=== PATIENT | male | born 1990 | race African-American/Black ===

== ENCOUNTER 2016-03-17 10:24 | Emergency (ER) | payer OTHER ==
[2016-03-17] MEDS ORDERED: HYDROmorphONE/DILAUDID 1 MG/ML SYR ONE (10:56)
[2016-03-17] MEDS ORDERED: ONDANSETRON 4 MG/2 ML VIAL ONE (10:56)
[2016-03-17] MEDS ORDERED: ONDANSETRON 4 MG/2 ML VIAL IVP ONE (11:05)
[2016-03-17] MEDS ORDERED: NS 1,000 ML IV ONE (11:05)
[2016-03-17] MEDS ORDERED: HYDROmorphONE/DILAUDID 1 MG/ML SYR IVP ONE (11:05)
[2016-03-17 11:14] LABS: % IMMATURE GRANULYOCYTES 0.3 % (0.0-1.1); ABSOLUTE IMMATURE GRANULOCYTES 0.03 10^3/uL (0.00-0.10); ADD DIFF? NO; ADD MORPH? NO; ADD SCAN? NO; ATYPICAL LYMPHOCYTE FLAG 10 (0-99); FRAGMENT RBC FLAG 0 (0-99); HEMATOCRIT 43.8 % (40.0-51.0); HEMOGLOBIN 14.9 g/dL (13.7-17.5); LEFT SHIFT FLG 0 (0-99); LIPEMIA HEMOLYSIS FLAG 90 (0-99); MEAN CELL HEMOGLOBIN 26.6 pg (27.9-34.1); MEAN CELL VOLUME 78.2 fL (81.5-99.8); MEAN PLATELET VOLUME 8.7 fL (8.7-11.7); PLATELET CLUMPS FLAG 10 (0-99); PLATELET COUNT 237 10^3/uL (150-400); RED CELL DISTRIBUTION WIDTH 12.3 % (11.5-15.2)
[2016-03-17 11:17] LABS: COLOR YELLOW; LEUKOCYTE ESTERASE,URINE NEGATIVE (NEGATIVE); NITRITE,URINE NEGATIVE (NEGATIVE)
[2016-03-17 11:21] LABS: RBC,URINE 50-182 /hpf (0-3)
[2016-03-17 11:33] LABS: ANION GAP 13 mEq/L (8-16); CALCIUM 9.6 mg/dL (8.5-10.4); CARBON DIOXIDE 21 mEq/l (22-31); CHLORIDE 103 mEq/L (97-110); CREATININE 1.2 mg/dL (0.7-1.3); GLOMERULAR FILTRATION RATE > 60; GLUCOSE 142 mg/dL (70-100); SODIUM 137 mEq/L (134-144)
[2016-03-17] MEDS ORDERED: KETOROLAC 30 MG/1 ML SDV IVP ONE (11:40)
[2016-03-17] MEDS ORDERED: TAMSULOSIN HCL 0.4 MG CAP PO ONE (11:40)
--- NOTE | 2016-03-17 11:53 | EDPHY ---
H & P Stated Complaint: L FLANK PAIN SINCE THIS AM Time Seen by Provider: 03/17/16 11:09 HPI/ROS: CHIEF COMPLAINT: left flank pain HISTORY OF PRESENT ILLNESS: 26-year-old male presents emergency department complaining of left lower quadrant abdominal pain that started at 6:30 a.m. this morning. Patient woke up feeling fine, an hour later developed a mild ache in his left lower quadrant. As the day has gone on a radiated to his left flank, became significantly worse in now he feels it in his left lower quadrant and left flank. Patient reports nausea, no vomiting, chills. He denies diarrhea. No fevers, no recent illness, no difficulty urinating, no hematuria, dysuria, he denies scrotal swelling or pain. Patient reports history of kidney stone on the right in 2012 states this feels a little different as the pain is not as sharp as last time. Patient denies abdominal surgeries. REVIEW OF SYSTEMS: A comprehensive 10 point review of systems is otherwise negative aside from elements mentioned in the history of present illness. Source: Patient Exam Limitations: No limitations - Personal History Current Tetanus/Diphtheria Vaccine: Yes Current Tetanus Diphtheria and Acellular Pertussis (TDAP): Yes - Medical/Surgical History Hx Asthma: No Hx Chronic Respiratory Disease: No Hx Diabetes: No Hx Cardiac Disease: No Hx Renal Disease: No Hx Cirrhosis: No Hx Alcoholism: No Hx HIV/AIDS: No Hx Splenectomy or Spleen Trauma: No Other PMH: PMH- KIDNEY STONES. PSH- L WRIST, R KNEE - Family History Significant Family History: No pertinent family hx - Social History Smoking Status: Never smoked - Physical Exam Exam: Physical Exam Gen: Alert and Oriented, NAD HEENT: PERRL, moist mucous membranes NECK: no meningismus CV: regular rate and regular rhythm PULM: CTAB, no wheezes ABDOMEN: soft, mild left lower quadrant tenderness to palpation, no rebound tenderness, no peritoneal signs, no guarding. BS present BACK: Left CVA tenderness NEURO: Neurologically grossly intact EXTREMITIES: normal appearing SKIN: no rash or break in skin on exposed skin PSYCH: answers questions appropriately. Constitutional: Initial Vital Signs Temperature (C) 36.3 C 03/17/16 10:27 Heart Rate 77 03/17/16 10:27 Respiratory Rate 22 H 03/17/16 10:27 Blood Pressure 170/72 H 03/17/16 10:27 O2 Sat (%) 100 03/17/16 10:27 O2 Delivery Mode Room Air Allergies/Adverse Reactions: Sulfa (Sulfonamide Antibiotics) Allergy (Verified 03/17/16 10:27) Home Medications: Medication Instructions Recorded Ondansetron Odt [Zofran Odt] 4 mg PO Q6-8PRN PRN #8 tab 03/17/16 Tamsulosin HCl 0.4 mg PO DAILY #7 cap 03/17/16 oxyCODONE/APAP 5/325 [Percocet 1 - 2 tab PO Q6H PRN #12 tab 03/17/16 5/325] Medical Decision Making ED Course/Re-evaluation: IV established, CBC, chemistry panel and urinalysis obtained. Patient was given 1 mg of IV Dilaudid and 4 mg of Zofran for pain and nausea. Urinalysis shows 50-182 red blood cells, 3-5 white blood cells. CBC is unremarkable, chemistry panel shows normal renal function. Patient is given 30 mg of Toradol IV and 0.4 mg of tamsulosin. This is likely a ureteral calculi. Will treat the patient for his pain and he will be discharged home with pain medication. Patient is urinating without difficulty, is afebrile, no white count few white blood cells in urine, this is unlikely a obstructing stone and unlikely an infected stone. Patient is given strict return precautions for fevers, vomiting, pain that is not controlled. He is given a urologist to follow up with for symptoms that are not improving. Differential Diagnosis: The differential diagnosis for the patient's flank pain included but was not limited to musculoskeletal causes, kidney stone, pyelonephritis, shingles, diverticulitis, appendicitis, and aortic aneurysm. - Data Points Laboratory Results: Laboratory Results 03/17/16 10:50 03/17/16 10:50 03/17/16 10:50 WBC 9.74 H 10^3/uL (3.80-9.50) RBC 5.60 10^6/uL (4.40-6.38) Hgb 14.9 g/dL (13.7-17.5) Hct 43.8 % (40.0-51.0) MCV 78.2 L fL (81.5-99.8) MCH 26.6 L pg (27.9-34.1) MCHC 34.0 g/dL (32.4-36.7) RDW 12.3 % (11.5-15.2) Plt Count 237 10^3/uL (150-400) MPV 8.7 fL (8.7-11.7) Neut % (Auto) 82.6 H % (39.3-74.2) Lymph % (Auto) 12.8 L % (15.0-45.0) [place] % (Auto) 3.8 L % (4.5-13.0) Eos % (Auto) 0.1 L % (0.6-7.6) Baso % (Auto) 0.4 % (0.3-1.7) Nucleat RBC Rel Count 0.0 % (0.0-0.2) Absolute Neuts (auto) 8.04 H 10^3/uL (1.70-6.50) Absolute Lymphs (auto) 1.25 10^3/uL (1.00-3.00) Absolute Monos (auto) 0.37 10^3/uL (0.30-0.80) Absolute Eos (auto) 0.01 L 10^3/uL (0.03-0.40) Absolute Basos (auto) 0.04 10^3/uL (0.02-0.10) Absolute Nucleated RBC 0.00 10^3/uL (0-0.01) Immature Gran % 0.3 % (0.0-1.1) Immature Gran # 0.03 10^3/uL (0.00-0.10) Sodium 137 mEq/L (134-144) Potassium 4.0 mEq/L (3.5-5.2) Chloride 103 mEq/L (97-110) Carbon Dioxide 21 L mEq/l (22-31) Anion Gap 13 mEq/L (8-16) BUN 16 mg/dL (7-23) Creatinine 1.2 mg/dL (0.7-1.3) Estimated GFR > 60 Glucose 142 H mg/dL (70-100) Calcium 9.6 mg/dL (8.5-10.4) Urine Color YELLOW Urine Appearance CLEAR Urine pH 6.0 (5.0-7.5) Ur Specific [place] 1.019 (1.002-1.030) Urine Protein NEGATIVE (NEGATIVE) Urine Ketones TRACE H (NEGATIVE) Urine Blood 3+ H (NEGATIVE) Urine Nitrate NEGATIVE (NEGATIVE) Urine Bilirubin NEGATIVE (NEGATIVE) Urine Urobilinogen NEGATIVE EU (0.2-1.0) Ur Leukocyte Esterase NEGATIVE (NEGATIVE) Urine RBC 50-182 H /hpf (0-3) Urine WBC 3-5 H /hpf (0-3) Ur Epithelial Cells NONE SEEN /lpf (NONE-1+) Ur Culture Indicated? NOT INDICATED (NI) Urine Glucose NEGATIVE (NEGATIVE) Medications Given: Discontinued Medications Hydromorphone HCl (Dilaudid) 1 mg IVP EDNOW ONE Stop: 03/17/16 11:06 Last Admin: 03/17/16 11:06 Dose: 1 mg Sodium Chloride (Ns) 1,000 mls @ 0 mls/hr IV ONCE ONE PRN Reason: Wide Open Stop: 03/17/16 11:06 Last Admin: 03/17/16 11:09 Dose: 1,000 mls Ketorolac Tromethamine (Toradol) 30 mg IVP EDNOW ONE Stop: 03/17/16 11:41 Last Admin: 03/17/16 11:53 Dose: 30 mg Ondansetron HCl (Zofran) 4 mg IVP EDNOW ONE Stop: 03/17/16 11:06 Last Admin: 03/17/16 11:09 Dose: 4 mg Tamsulosin HCl (Flomax) 0.4 mg PO EDNOW ONE Stop: 03/17/16 11:41 Last Admin: 03/17/16 11:53 Dose: 0.4 mg Departure - Departure Disposition: Home, Routine, Self-Care Clinical Impression: Renal colic on left side Condition: Good Instructions: Renal Colic (ED), Kidney Stones (ED) Additional Instructions: Kidney stone: Take Percocet as needed for severe pain. Use Zofran as needed for nausea. Take ibuprofen 600 mg every 6-8 hours as needed for moderate pain. This will also help with inflammation. Take Flomax as directed. Followup with urology as directed for symptoms not improving. Strain urine. Return to the emergency department if you have worsening pain, fevers, persistent vomiting, or other concerns. Referrals: Kendell Meadows MD [Medical Doctor] - As per Instructions (Urologist on-call) Prescriptions: oxyCODONE/APAP 5/325 [Percocet ] 1 - 2 tab PO Q6H PRN #12 tab PRN Reason: Pain, Severe Tamsulosin HCl 0.4 mg PO DAILY #7 cap Ondansetron Odt [Zofran Odt] 4 mg PO Q6-8PRN PRN #8 tab PRN Reason: Nausea/Vomiting, Can'T Take Po
[2016-03-17 12:30] VITALS: BP 127/78; PULSE 70; RESP 14; TEMP 97.9; O2SAT 94
== END 2016-03-17 12:29 | disposition home or self-care (01) ==
DX: N23 Unspecified renal colic (principal)
CPT/HCPCS: 96374; J1170; J1885; J2405